=== PATIENT | female | born 1980 | race African-American/Black ===

== ENCOUNTER 2021-01-27 19:39 | Observation (INO) | payer MEDICAID ==
[~2021-01-27] VITALS: Ht 167.6 cm; Wt 93.9 kg
[2021-01-27 21:16] LABS: CLARITY URINE CLEAR (CLEAR); COLOR URINE YELLOW (YELLOW); KETONES URINE TRACE (NEGATIVE); LEUKOCYTE ESTERASE URINE 3+ (NEGATIVE); NITRITE URINE NEGATIVE (NEGATIVE); OCCULT BLOOD URINE NEGATIVE (NEGATIVE); PROTEIN URINE 1+ (NEGATIVE); SPECIFIC GRAVITY URINE 1.016 (1.005-1.030)
[2021-01-27] MEDS ORDERED: ACETAMINOPHEN 500MG TABLET PO NR (22:15)
[2021-02-15] MEDS ORDERED: IBUP-2030 PO (08:23)
[2021-02-15] MEDS ORDERED: MULT-1146 MT (08:23)
[2021-02-15] MEDS ORDERED: FERR325T6 MT (08:23)
== END 2021-01-27 23:36 | disposition home or self-care (01) ==
LOC: 8 EST LDRP 19:39
PROVIDERS: ADMIT Obstetrics & Gynecology; ATTEND Obstetrics & Gynecology
DX: O26.893 Other specified pregnancy related conditions, third trimester (principal); R10.9 Unspecified abdominal pain; O09.523 Supervision of elderly multigravida, third trimester; Z3A.37 37 weeks gestation of pregnancy
CPT/HCPCS: 59025; 76805; 76818; 81003; G0378; 99281